=== PATIENT | female | born 1960 | race Caucasian/White ===

== ENCOUNTER 2017-06-03 10:46 | Emergency (ER) | payer BC, OTHER ==
[~2017-06-03] VITALS: Ht 154.9 cm; Wt 44.5 kg
[2017-06-03 11:13] VITALS: Ht 154.9 cm; Wt 44.5 kg
--- NOTE | 2017-06-03 13:40 | ERD ---
ER Documentation Chief Complaint Chief Complaint AP RADIATING DOWN TO LEGS >3MTHS, SEEN BY PMD NO RELIEF HPI The patient is a 56-year-old female, presenting to the ER because of chronic abdominal pain more than 3 months, associated with constipation. She was seen at [facility] ER in February 2017. She denies fever, chills, neck pain, chest pain, dyspnea, complains of weight loss, denies dysuria. She does not smoke nor drink. She is waiting to see water treatment plant mechanic Past medical history: Diabetes mellitus Past surgical history: None ROS All systems reviewed and are negative except as per history of present illness. Medications Home Meds Active Scripts Tramadol HCl (Tramadol HCl) 50 Mg Tablet, 50 MG PO Q6 Y for PAIN, #10 TAB Prov:WALT FERRERA MD 06/03/17 Ondansetron (Ondansetron Odt) 4 Mg Tab.rapdis, 4 MG PO Q6H Y for NAUSEA AND/OR VOMITING, #10 TAB Prov:WALT FERRERA MD 06/03/17 Reported Medications Glipizide* (Glipizide*) 5 Mg Tablet, 5 MG PO BID, TAB 06/03/17 Metformin* (Glucophage*) 1,000 Mg Tablet, 1000 MG PO BID, #60 TAB 06/03/17 Allergies Allergies: Coded Allergies: No Known Allergy (Unverified , 06/03/17) Physical Exam Vitals Vital Signs Date Time Temp Pulse Resp B/P Pulse Ox O2 Delivery O2 Flow Rate FiO2 06/03/17 16:17 98.6 92 18 139/73 100 Room Air 06/03/17 14:36 98.9 95 20 134/82 100 Room Air 06/03/17 11:13 98.9 112 18 135/74 100 Physical Exam Const: No acute distress. Head: Atraumatic. Eyes: Normal Conjunctiva. ENT: Normal External Ears, Nose and Mouth. Neck: Full range of motion. No meningismus. Resp: Clear to auscultation bilaterally. Cardio: Regular Tachycardic Abd: Soft, non distended, normal bowel sounds, Moderately vague and diffuse abdominal tenderness, no rigidity, rebound, CVA tenderness Skin: No petechiae or rashes. Back: No midline or flank tenderness. Ext: No cyanosis, or edema. Neur: Awake and alert. No focal deficit Psych: Normal Mood and Affect. Result Diagram: 06/03/17 1401 06/03/17 1401 Results 24 hrs Laboratory Tests Test 06/03/17 14:01 06/03/17 15:27 White Blood Count 9.710^3/ul Red Blood Count 4.4010^6/ul Hemoglobin 13.2g/dl Hematocrit 37.8% Mean Corpuscular Volume 85.9fl Mean Corpuscular Hemoglobin 30.0pg Mean Corpuscular Hemoglobin Concent 34.9g/dl Red Cell Distribution Width 11.9% Platelet Count 39809^3/UL Mean Platelet Volume 10.8fl Neutrophils % 65.3% Lymphocytes % 25.1% Monocytes % 6.8% Eosinophils % 2.0% Basophils % 0.5% Nucleated Red Blood Cells % 0.0/100WBC Neutrophils # 6.310^3/ul Lymphocytes # 2.410^3/ul Monocytes # 0.710^3/ul Eosinophils # 0.210^3/ul Basophils # 0.110^3/ul Nucleated Red Blood Cells # 0.010^3/ul Sodium Level 137mmol/L Potassium Level 3.5mmol/L Chloride Level 96mmol/L Carbon Dioxide Level 25mmol/L Anion Gap 20 Blood Urea Nitrogen 20mg/dl Creatinine 0.62mg/dl Glucose Level 361mg/dl Calcium Level 10.3mg/dl Total Bilirubin 0.2mg/dl Direct Bilirubin 0.00mg/dl Indirect Bilirubin 0.2mg/dl Aspartate Amino Transf (AST/SGOT) 14IU/L Alanine Aminotransferase (ALT/SGPT) 30IU/L Alkaline Phosphatase 71IU/L Total Protein 8.2g/dl Albumin 5.0g/dl Globulin 3.20g/dl Albumin/Globulin Ratio 1.56 Lipase 148U/L Bedside Urine pH (LAB) 5.5 Bedside Urine Protein (LAB) Negative Bedside Urine Glucose (UA) 0.50% Bedside Urine Ketones (LAB) Negative Bedside Urine Blood Negative Bedside Urine Nitrite (LAB) Negative Bedside Urine Leukocyte Esterase (L Negative Current Medications Medications (Trade) Dose Ordered Sig/Karson Route PRN Reason Start Time Stop Time Status Last Admin Dose Admin Sodium Chloride (NS) 1,000 ml @ 1,000 mls/hr Q1H ONCE IV 06/03/17 14:00 06/03/17 14:59 DC 06/03/17 14:07 Morphine Sulfate (morphine) 2 mg ONCE ONCE IV 06/03/17 14:00 06/03/17 14:04 DC 06/03/17 14:07 Ondansetron HCl (Zofran Inj) 4 mg ONCE STAT IV 06/03/17 13:54 06/03/17 13:55 DC 06/03/17 14:07 Morphine Sulfate (morphine) 4 mg ONCE STAT IV 06/03/17 14:54 06/03/17 14:57 DC 06/03/17 15:36 IV Flush 10 ml 10 ml STK-MED ONCE .ROUTE 06/03/17 15:28 06/03/17 15:29 DC Sodium Chloride (NS) 100 ml @ ud STK-MED ONCE .ROUTE 06/03/17 15:28 06/03/17 15:29 DC Iodixanol (Visipaque Locm) 100 ml STK-MED ONCE .ROUTE 06/03/17 15:28 06/03/17 15:29 DC Procedures/[place] [id number] Radiology Main Line: [phone] DIAGNOSTIC IMAGING REPORT Patient: JESUS PULIDO : 1960 Age: 56 Sex: F MR #: [id number] DOS: 06/03/17 1354 Ordering MD: WALT FERRERA MD Location: E/R Room/Bed: PROCEDURE: CT Abdomen and Pelvis with contrast. CLINICAL INDICATION: Weight loss, abdominal pain TECHNIQUE: CT of the abdomen and pelvis was performed on a multi-detector scanner following the uncomplicated IV administration of 90 cc of Visipaque 320. Coronal and sagittal images were reformatted from the axial data set. One or more of the following dose reduction techniques were used: automated exposure control, adjustment of the mA and/or kV according to patient size, use of iterative reconstruction technique. CTDI = 4.92 mGy. DLP = 255.03 mGy-cm. COMPARISON: None. FINDINGS: The lung bases are clear. The heart size is normal, without pericardial effusion. Liver, gallbladder, biliary tree, pancreas, spleen, adrenal glands and kidneys are unremarkable except for benign cysts. No urolithiasis or obstructive uropathy is identified. The stomach is mildly distended and fluid- filled, but otherwise grossly unremarkable. There is no abdominal aortic aneurysm or dissection. Aortic vascular calcifications are present. There is no retroperitoneal lymphadenopathy. The mimi hepatis region is clear. No bowel obstruction, free intraperitoneal air or abscess is identified. Sigmoid diverticulosis is seen without diverticulitis. The appendix is well visualized and normal. There is no colitis. Calcified mediastinal lymph nodes are seen, presumably chronic post infectious or postinflammatory sequela. Urinary bladder, uterus and adnexa are grossly unremarkable. No pelvic mass, free fluid or lymphadenopathy is identified. The surrounding osseous structures are remarkable for degenerative enthesopathy of the spine. No osteolytic or osteoblastic lesion is detected. There is chronic bilateral L5 spondylolysis, with grade 1 anterolisthesis at L5-S1. Also noted is grade 1 anterolisthesis at L4-5, likely chronic secondary to facet arthrosis. IMPRESSION: 1. Aortoiliac atherosclerotic calcifications are present. 2. Sigmoid diverticulosis is seen without diverticulitis. 3. There is chronic bilateral L5 spondylolysis, with grade 1 anterolisthesis at L5-S1. 4. No mass, lymphadenopathy, or focal acute inflammatory process is identified. RPTAT: AAQQ .Robert Nelson MD, MD Date Time Electronically viewed and signed by .Robert Nelson MD, MD on 06/03/2017 16: 04 .R/ CC: WALT FERRERA MD EKG: Read by emergency physician Rate/Rhythm: Normal Sinus Rhythm 63 beats/min QRS, ST, T-waves: No ST elevation, no T inversion Impression: Normal EKG MEDICAL MAKING DECISION: The patient is a 56 yo female, presenting with acute abdominal pain of unclear etiology. She was treated with 1 L normal saline for clinical dehydration and acute diabetic hyperglycemia, morphine 2 mg IV, followed IV for pain and Zofran 4 IV for nausea with good response. The differential diagnoses considered include but are not limited to cholelithiasis, cholecystitis, cystitis, pancreatitis, hepatitis, gastritis, peptic ulcer disease, gastric ulcer, appendicitis, diverticulitis, cholangitis, choledocholithiasis, partial small bowel obstruction. Departure Diagnosis: Primary Impression: Abdominal pain Additional Impression: Hyperglycemia due to type 2 diabetes mellitus Condition: Good Comments She was discharged with Antolin ROSEN and Fiordaliza and advised to follow with her water treatment plant mechanic in 1-2 days, sooner if needed and return of a concern The patient's blood pressure was elevated (>120/80) but appears stable without evidence of hypertension emergency or urgency. The patient was counseled about the risks of hypertension and urged to pursue outpatient monitoring and therapy within a week with their primary care physician. WALT FERRERA MD Jun 03, 2017 13:40
[2017-06-03] MEDS ORDERED: ONDANSETRON 4 MG INJ IV STA (13:54)
[2017-06-03] MEDS ORDERED: SOD CHLORIDE 0.9% 1,000 ML IV ONE (14:00)
[2017-06-03] MEDS ORDERED: morphine 2 MG INJ IV ONE (14:00)
[2017-06-03] MEDS ORDERED: MTF1000T PO (14:10)
[2017-06-03] MEDS ORDERED: GLIP5TAB13 PO (14:11)
[2017-06-03 14:15] LABS: BASOPHIL # 0.1 10^3/ul (0.0-0.1); BASOPHILS % 0.5 % (0.0-2.0); EOSINOPHILS # 0.2 10^3/ul (0.0-0.5); HEMATOCRIT 37.8 % (37.0-47.0); HEMOGLOBIN 13.2 g/dl (12.0-16.0); LYMPHOCYTES # 2.4 10^3/ul (0.8-2.9); LYMPHOCYTES % 25.1 % (15.0-51.0); MEAN CORPUSCULAR HGB CONC 34.9 g/dl (32.0-37.0); MEAN CORPUSCULAR VOLUME 85.9 fl (82.0-101.0); MEAN PLATELET VOLUME 10.8 fl (7.4-10.4); MONOCYTE # 0.7 10^3/ul (0.3-0.9); MONOCYTES % 6.8 % (0.0-11.0); NEUTROPHIL # 6.3 10^3/ul (1.6-7.5); NEUTROPHILS % 65.3 % (39.0-77.0); PLATELET COUNT 273 10^3/UL (140-415); RED CELL DISTRIBUTION WIDTH 11.9 % (11.5-14.5); WHITE BLOOD COUNT 9.7 10^3/ul (4.8-10.8)
[2017-06-03 14:27] LABS: ALBUMIN/GLOBULIN RATIO 1.56; BILIRUBIN,INDIRECT 0.2 mg/dl (0-1.1); BILIRUBIN,TOTAL 0.2 mg/dl (0.2-1.3); CALCIUM 10.3 mg/dl (8.4-10.2); CREATININE 0.62 mg/dl (0.44-1.00); POTASSIUM 3.5 mmol/L (3.5-5.1); TOTAL PROTEIN 8.2 g/dl (6.1-8.1)
[2017-06-03] MEDS ORDERED: morphine 4 MG/ML VIAL IV STA (14:54)
[2017-06-03 15:27] LABS: URINE BLOOD (Dip) POC Negative (NEGATIVE)
[2017-06-03] MEDS ORDERED: SOD CHLORIDE 0.9% 100 ML ONE (15:28)
[2017-06-03] MEDS ORDERED: IODIXANOL LOCM 100 ML BTL ONE (15:28)
--- NOTE | 2017-06-03 16:04 | RADRPT ---
PROCEDURE: CT Abdomen and Pelvis with contrast. CLINICAL INDICATION: Weight loss, abdominal pain TECHNIQUE: CT of the abdomen and pelvis was performed on a multi-detector scanner following the un complicated IV administration of 90 cc of Visipaque 320. Coronal and sagittal images were reformatt ed from the axial data set. One or more of the following dose reduction techniques were used: autom ated exposure control, adjustment of the mA and/or kV according to patient size, use of iterative re construction technique. CTDI = 4.92 mGy. DLP = 255.03 mGy-cm. COMPARISON: None. FINDINGS: The lung bases are clear. The heart size is normal, without pericardial effusion. Liver, gallbladd er, biliary tree, pancreas, spleen, adrenal glands and kidneys are unremarkable except for benign cy sts. No urolithiasis or obstructive uropathy is identified. The stomach is mildly distended and flui d-filled, but otherwise grossly unremarkable. There is no abdominal aortic aneurysm or dissection. Aortic vascular calcifications are present. T here is no retroperitoneal lymphadenopathy. The mimi hepatis region is clear. No bowel obstruction, free intraperitoneal air or abscess is identified. Sigmoid diverticulosis is s een without diverticulitis. The appendix is well visualized and normal. There is no colitis. Calcifi ed mediastinal lymph nodes are seen, presumably chronic post infectious or postinflammatory sequela. Urinary bladder, uterus and adnexa are grossly unremarkable. No pelvic mass, free fluid or lymphade nopathy is identified. The surrounding osseous structures are remarkable for degenerative enthesopathy of the spine. No os teolytic or osteoblastic lesion is detected. There is chronic bilateral L5 spondylolysis, with grade 1 anterolisthesis at L5-S1. Also noted is grade 1 anterolisthesis at L4-5, likely chronic secondary to facet arthrosis. IMPRESSION: 1. Aortoiliac atherosclerotic calcifications are present. 2. Sigmoid diverticulosis is seen without diverticulitis. 3. There is chronic bilateral L5 spondylolysis, with grade 1 anterolisthesis at L5-S1. 4. No mass, lymphadenopathy, or focal acute inflammatory process is identified. RPTAT: AAQQ .Robert Nelson MD, MD Date Time Electronically viewed and signed by .Robert Nelson MD, on 06/03/2017 16:04 .R/
[2017-06-03] MEDS ORDERED: ONDA4TAB14 PO (16:15)
[2017-06-03] MEDS ORDERED: TRAM50TA2 PO (16:16)
[2017-06-03 16:17] VITALS: BP 139/73; PULSE 92; RESP 18; TEMP 98.6
== END 2017-06-03 16:45 | disposition home or self-care (01) ==
LOC: E/R 10:46
DX: R10.9 Unspecified abdominal pain (principal); E11.65 Type 2 diabetes mellitus with hyperglycemia; Z79.84 Long term (current) use of oral hypoglycemic drugs
CPT/HCPCS: 36415; 74177; 80053; 81003; 83690; 85025; 96361; 96374; 96375; 96376; 99285; J2270; J2405; J7030; Q9967